=== PATIENT | female | born 1950 | race Caucasian/White ===

== ENCOUNTER 2017-06-03 09:08 | Outpatient (CLI) | payer MEDICARE | END 2017-06-03 09:09 | disposition home or self-care (01) | LOC: BICMAMMO 09:08 | PROVIDERS: ATTEND Internal Medicine | DX: Z12.31 Encounter for screening mammogram for malignant neoplasm of breast (principal); Z78.0 Asymptomatic menopausal state; M85.88 Other specified disorders of bone density and structure, other site; M81.0 Age-related osteoporosis without current pathological fracture | CPT/HCPCS: 77063; 77067; 77080 ==

== ENCOUNTER 2018-06-07 12:42 | Outpatient (CLI) | payer MEDICARE ==
--- NOTE | 2018-06-07 13:59 | MMO ---
Bilateral MAMMO Bilat Screen [facility]. CLINICAL HISTORY: Patient is 67 years old and is seen for screening. The patient has no family history of breast cancer. The patient has no personal history of cancer. The patient has a history of left Excisional Biopsy - benign - 35 years ago. VIEWS: The views performed were: bilateral craniocaudal with tomosynthesis and bilateral mediolateral oblique with tomosynthesis. FILMS COMPARED: The present examination has been compared to a prior imaging study performed at [facility] on 06/03/2017. MAMMOGRAM FINDINGS: The breasts are heterogeneously dense, which could obscure a lesion on mammography. There are stable benign appearing calcifications seen in both breasts. There are no suspicious masses, suspicious calcifications, or new areas of architectural distortion. IMPRESSION: THERE IS NO MAMMOGRAPHIC EVIDENCE OF MALIGNANCY. A ROUTINE FOLLOW-UP MAMMOGRAM IN 1 YEAR IS RECOMMENDED. THE RESULTS OF THIS EXAM WERE SENT TO THE PATIENT. ACR BI-RADS Category 2 - Benign finding MAMMOGRAPHY NOTE: 1. A negative mammogram report should not delay a biopsy if a dominant of clinically suspicious mass is present. 2. Approximately 10% to 15% of breast cancers are not detected by mammography. 3. Adenosis and dense breasts may obscure an underlying neoplasm.
== END 2018-06-07 12:43 | disposition home or self-care (01) ==
LOC: BICMAMMO 12:42
PROVIDERS: ATTEND Internal Medicine
DX: Z12.31 Encounter for screening mammogram for malignant neoplasm of breast (principal)
CPT/HCPCS: 77063; 77067

== ENCOUNTER 2018-12-26 15:05 | Emergency (ER) | payer MEDICARE | END 2018-12-26 16:29 | disposition home or self-care (01) | LOC: ERS 15:05 | DX: E11.649 Type 2 diabetes mellitus with hypoglycemia without coma (principal); E03.9 Hypothyroidism, unspecified; I10 Essential (primary) hypertension; E78.00 Pure hypercholesterolemia, unspecified; I25.2 Old myocardial infarction; Z86.73 Personal history of transient ischemic attack (TIA), and cerebral infarction without residual deficits; Z79.4 Long term (current) use of insulin; Z79.01 Long term (current) use of anticoagulants; Z79.82 Long term (current) use of aspirin | CPT/HCPCS: 36416; 99285 ==

== ENCOUNTER 2019-03-03 09:59 | Outpatient (CLI) | payer MEDICARE ==
--- NOTE | 2019-03-03 10:16 | RAD ---
EXAM: XR Shoulder Rt 3 View STANDARD PROVIDED CLINICAL HISTORY: Pain FINDINGS: There is no evidence for fracture. The acromioclavicular distance appears upper limits normal to mild ly widened. The coracoclavicular distance appears normal. Alignment appears anatomic. Joint spaces appear preserved. Calcified granuloma right upper lung zone. IMPRESSION: Borderline widening of the acromioclavicular distance. Correlate with concerns for low-grade AC joint injury.
== END 2019-03-03 10:00 | disposition home or self-care (01) ==
LOC: BICRAD 09:59
PROVIDERS: ATTEND Internal Medicine
DX: M75.01 Adhesive capsulitis of right shoulder (principal)

== ENCOUNTER 2019-04-30 10:24 | Observation (INO) | payer MEDICARE ==
--- NOTE | 2019-04-30 10:45 | CT ---
CT Brain WO Con History: Stroke alert. Altered mental status. Comparison: None. Findings: No acute hemorrhage or infarct. No midline shift or mass effect. Ventricular size and extra -axial CSF spaces are normal. Old right small lacunar infarct. The calvarium is intact. Paranasal sinuses and mastoids are clear. Impression: No acute intracranial abnormality.
[2019-04-30 10:53] LABS: #Eosinphils 0.2 thou/uL (0.0-0.7); #Lymphocytes 1.3 thou/uL (1.20-3.40); #Monocytes 0.4 thou/uL (0.11-0.59); #Neutrophils 3.8 thou/uL (1.40-6.50); %Basophils 0.8 % (0.0-1.0); %Eosinophils 3.8 % (0.0-10.0); %Lymphocytes 22.8 % (21.0-51.0); %Monocytes 6.5 % (0.0-10.0); %Neutrophils 66.1 % (42.0-75.0); Hemoglobin 12.2 g/dL (12.0-16.0); Mean Corpuscular Hemoglobin 34.1 pg (27.0-31.0); Mean Platelet Volume 9.2 fL (7.4-10.4); Platelet Count 183 thou/uL (130-400); RBC Distribution Width 11.8 % (11.5-14.5); Red Blood Cell (RBC) Count 3.57 mill/uL (4.20-5.40); White Blood Cell (WBC) Count 5.7 thou/uL (4.8-10.8)
--- NOTE | 2019-04-30 10:59 | CT ---
CTA head: Multiple axial tomograms obtained to the head with IV enhancement in the arterial phase. Multiplanar reconstruction and 3-D postprocessing according to angiogram protocol. INDICATIONS:stroke protocol FINDINGS: Intracranial internal carotid arteries appear patent and symmetric. Middle cerebral arteries appear patent and symmetric. M2 and M3 branches appear symmetric. No evidenc e of focal stenosis or occlusion. Anterior cerebral arteries appear patent and symmetric with no evidence of stenosis or occlusion. Basilar artery appears patent. No significant stenosis. Posterior cerebral arteries appear patent and symmetric. No focal stenosis or occlusion identified. IMPRESSION: Unremarkable CTA brain CTA neck: Multiple axial tomograms obtained through the neck with IV enhancement in arterial phase. Multiplanar reconstruction and 3-D postprocessing according to angiogram protocol. INDICATION: Stroke protocol FINDINGS: No stenosis identified at the origin of the arch vessels. Right common carotid artery appears patent and symmetric. No focal stenosis. Right bulb and right internal carotid artery appear patent. No evidence of stenosis. Left common carotid artery appears patent. No evidence of stenosis. Left internal carotid artery appears patent. No evidence of stenosis identified. Vertebral arteries appear patent and symmetric. No evidence of stenosis. Visualized soft tissues of the neck appear unremarkable. No mass or adenopathy. IMPRESSION: Unremarkable CTA of neck
[2019-04-30 11:09] LABS: ALT (SGPT) 23 U/L (8-55); AST (SGOT) 27 U/L (5-34); Albumin 4.3 g/dL (3.4-4.8); Alkaline Phosphatase 79 U/L (40-110); Anion Gap 13 mmol/L (10-20); BUN (Urea Nitrogen) 31 mg/dL (9.8-20.1); Bilirubin, Total 0.4 mg/dL (0.2-1.2); Calc. Creatinine Clearance 0 mL/min (70-130); Calcium 9.5 mg/dL (7.8-10.44); Carbon Dioxide 29 mmol/L (23-31); Chloride 103 mmol/L (98-107); Estimated GFR-MDRD 40; Globulin 2.7 g/dL (2.4-3.5); Glucose 125 mg/dL (80-115); Potassium 4.6 mmol/L (3.5-5.1); Sodium 140 mmol/L (136-145)
[2019-04-30] MEDS ORDERED: Dextrose 5% in Water 1,000 ML IV PRN (15:36)
[2019-04-30] MEDS ORDERED: Guaifenesin DM 100-10/5 ML UDCUP PO PRN (15:36)
[2019-04-30] MEDS ORDERED: Dextrose 50% Abboject 50 ML SYRINGE SLOW IVP PRN (15:36)
[2019-04-30] MEDS ORDERED: Senokot S 8.6-50 MG TAB PO PRN (15:36)
[2019-04-30] MEDS ORDERED: HumaLOG 300 UNITS/3 ML VIAL SC PRN (15:36)
[2019-04-30] MEDS ORDERED: Ondansetron PF 4 MG/2 ML Vial IVP PRN (15:36)
[2019-04-30] MEDS ORDERED: Acetaminophen 325 MG TAB PO PRN (15:36)
[2019-04-30] MEDS ORDERED: cloNIDine 0.1 MG TAB PO PRN (15:39)
--- NOTE | 2019-04-30 15:59 | RAD ---
EXAM: Portable chest PROVIDED CLINICAL HISTORY: Altered mental status COMPARISON: None FINDINGS: Cardiac and mediastinal silhouette is within normal limits. No focal consolidation, pleural fluid or pneumothorax evident. Median sternotomy changes are demonstrated. Wires overlie the left heart, which may reflect abandoned epicardial leads. Calcified granuloma right upper lung zone. IMPRESSION: No evidence for an acute cardiopulmonary process.
[2019-04-30 16:17] LABS: Hemoglobin A1c 7.1 % (4.0-6.0)
--- NOTE | 2019-04-30 18:53 | HP ---
REASON FOR ADMISSION: Possible TIA, hypoglycemia, acute kidney injury with moderate dehydration. HISTORY OF PRESENTING ILLNESS: Per patient, she was getting ready to go to [employer]. She had breakfast in the morning. She was not feeling right and was having a little headache. Despite this, the patient managed to drive to [employer] through, she started to feel confused. Her right eye started to hurt. She finally managed to turn her car around and come back home. On arrival, the patient had difficulty opening the door. Her drfzhskn-bb-qeg and son were at home and they saw her to be confused. They checked her sugar, it was 47. The patient says it was 223 in the morning when she checked. This was 2-1/2 hours prior to the sugar dipping down to 47. They gave her 16 ounce of orange juice and the patient felt a little better. Family brought her to the emergency room for the same. She had some slurring of speech. Her blood pressure was elevated at 200/100 as well. PAST MEDICAL AND SURGICAL HISTORY: 1. History of prior CVA which was a small one which made her get a headache. 2. Diabetes type 1 from 10 years of age. 3. Hypothyroidism. 4. Dyslipidemia. 5. History of CABG done for 5 vessels last year. 6. Hysterectomy. 7. Dyslipidemia. 8. Hypothyroidism. CURRENT MEDICATIONS: 1. The patient is on Humalog sliding scale, she took 6 units this morning. 2. Lantus 10 units subcu at bedtime. 3. Plavix 75 mg p.o. daily. 4. Atorvastatin 10 mg p.o. at bedtime. 5. Enalapril 10 mg daily. 6. Levothyroxine 100 mcg p.o. daily. 7. Metoprolol 50 mg twice daily. 8. Pristiq daily. ALLERGIES: NO KNOWN DRUG ALLERGIES. PERSONAL HISTORY: Does not abuse alcohol or drugs. No history of smoking. She lives with her son and pqjfwzkr-lu-yrq. She lost her 6 months back. She ambulates by herself at baseline. FAMILY HISTORY: Mother at the age of 47 from brain aneurysm. Had a brother who at the age of 39 from brain aneurysm as well. Father of natural causes from an old age. CODE STATUS: Full. Power of estate attorney is her son. REVIEW OF SYSTEMS: CONSTITUTIONAL: Negative for weight loss or gain, ability to conduct usual activities. SKIN: Negative for rash, itching. EYES: Negative for double vision, pain. ENT/MOUTH: Negative for nose bleeding, neck stiffness, pain, tenderness. CARDIOVASCULAR: Negative for palpitations, dyspnea on exertion, orthopnea. RESPIRATORY: Negative for shortness of breath, wheezing, cough, hemoptysis, fever or night sweats. GASTROINTESTINAL: Negative for poor appetite, abdominal pain, heartburn, nausea , vomiting, constipation, or diarrhea. GENITOURINARY: Negative for urgency, frequency, dysuria, nocturia. MUSCULOSKELETAL: Negative for pain, swelling. NEUROLOGIC/PSYCHIATRIC: Negative for anxiety, depression. ALLERGY/IMMUNOLOGIC: Negative for skin rash, bleeding tendency. PHYSICAL EXAMINATION: GENERAL: The patient is a 68-year-old female, who is currently not in any acute distress. She is fully oriented at present. VITAL SIGNS: Blood pressure 184/84, pulse 66 per minute, respiratory rate 16 per minute, temperature 98.2 degrees Fahrenheit, saturating 98% on room air. NECK: Supple. No elevated JVD. HEENT: Eyes; extraocular muscles intact. Pupils reacting to light. Oral cavity, mucous membranes are dry. No exudates or congestion. CARDIOVASCULAR SYSTEM: S1-S2 heard. Regular rhythm. RESPIRATORY SYSTEM: Air entry 1+ bilateral. No rales or rhonchi. ABDOMEN: Soft. Bowel sounds heard. No tenderness, rigidity, or guarding. EXTREMITIES: No peripheral edema or calf tenderness. VASCULAR SYSTEM: Peripheral pulses 2+ bilateral. No ischemic ulcerations or gangrene. CENTRAL NERVOUS SYSTEM: No gross focal motor deficits noted. The patient is alert, awake, and oriented well. PSYCHIATRIC SYSTEM: The patient's mood is euthymic. No hallucinations or delusions. IMAGING STUDIES: CT brain without contrast done showed no acute intracranial abnormality. CT angio of the head and neck shows no abnormality. Chest x-ray done shows no acute cardiopulmonary process. LABORATORY DATA: BNP was 182. Liver enzymes within normal limits. BUN 31, creatinine 1.3, serum glucose 125. HbA1c 7.1. Albumin 4.3. Troponin is negative. Electrolytes are stable. White count of 5, H and H 12 and 35, platelet count is 183, MCV is 100. CLINICAL IMPRESSION AND PLAN: The patient will be admitted under observation on stroke unit for slurred speech, confusion, and headache, likely all contributed from hypoglycemia with fingerstick glucose of 47 this morning. Her HbA1c is around 7.1. The patient manages her diabetes strictly. She had taken 6 units of Humalog in the morning along with 10 units of Lantus last evening. Her initial fingerstick glucose was 223 which dropped down to 47 two and half hours later despite her eating a breakfast. She has no signs or symptoms of any infection at present. The patient denies any urinary symptoms. Her urinalysis is pending at present. We will continue her on aspirin, Lipitor at 40 mg, Plavix, Humalog mild dose sliding scale, Lantus 10 units at bedtime, Synthroid home dose, Lopressor home dose 50 mg twice daily. Gently hydrate her with normal saline at 100 mL/hour. We will obtain MRI without contrast for the brain and echo with 2D Doppler for LV function to complete TIA protocol. We will also obtain a folic acid and B12 levels in view of her MCV being elevated. If her UA shows signs and symptoms of infection, she will be placed on antibiotics. We will hold off on any for now. I have given full updates to the patient and her udkmhdqr-[id number] who is also a nurse practitioner, Ms. Neeta Gallo, at bedside. Job ID: [id number] MTDD
[2019-04-30] MEDS ORDERED: HumaLOG 300 UNITS/3 ML VIAL ONE (19:09)
[2019-04-30] MEDS: HumaLOG 300 UNITS/3 ML VIAL SC PRN (19:15)
[2019-04-30] MEDS ORDERED: Metoprolol Tartrate 25 MG TAB ONE (20:35)
[2019-04-30] MEDS ORDERED: Famotidine 20 MG TAB ONE (20:35)
[2019-04-30] MEDS ORDERED: Atorvastatin Calcium 40 MG TAB PO SCH (21:00)
[2019-04-30] MEDS ORDERED: Insulin Glargine 10 UNITS in Pre-Filled Syringe SC SCH (21:00)
[2019-04-30] MEDS: Sodium Chloride 0.9% 1,000 ML IV SCH (21:01)
[2019-04-30] MEDS: Metoprolol Tartrate 50 MG TAB PO SCH (21:07)
[2019-04-30] MEDS: Famotidine 20 MG TAB PO SCH (21:07)
[2019-05-01] MEDS: Sodium Chloride 0.9% 1,000 ML IV SCH (02:07)
[2019-05-01 05:54] LABS: #Eosinphils 0.2 thou/uL (0.0-0.7); #Lymphocytes 1.2 thou/uL (1.20-3.40); #Monocytes 0.3 thou/uL (0.11-0.59); #Neutrophils 2.8 thou/uL (1.40-6.50); %Basophils 0.7 % (0.0-1.0); %Eosinophils 3.8 % (0.0-10.0); %Lymphocytes 26.8 % (21.0-51.0); %Neutrophils 61.7 % (42.0-75.0); Hemoglobin 11.5 g/dL (12.0-16.0); Mean Corpuscular HGB CONC 33.9 g/dL (32.0-36.0); Mean Corpuscular Hemoglobin 33.9 pg (27.0-31.0); Mean Platelet Volume 9.5 fL (7.4-10.4); Platelet Count 155 thou/uL (130-400); RBC Distribution Width 11.7 % (11.5-14.5); Red Blood Cell (RBC) Count 3.39 mill/uL (4.20-5.40); White Blood Cell (WBC) Count 4.5 thou/uL (4.8-10.8)
[2019-05-01] MEDS ORDERED: Levothyroxine Sodium 100 MCG TAB PO SCH (06:00)
[2019-05-01 06:09] LABS: Iron 85 ug/dL (50-170); Iron Binding Capacity, Total 255 mcg/dL (265-497)
[2019-05-01 06:18] LABS: Anion Gap 10 mmol/L (10-20); BUN (Urea Nitrogen) 25 mg/dL (9.8-20.1); Calc. Creatinine Clearance 0 mL/min (70-130); Calcium 9.2 mg/dL (7.8-10.44); Carbon Dioxide 30 mmol/L (23-31); Cardiac Risk 2.5 (Less than 4.5); Chloride 101 mmol/L (98-107); Cholesterol 152 mg/dl (< 200 Desired); Estimated GFR-MDRD 38; Glucose 353 mg/dL (80-115); HDL Cholesterol 61 mg/dL (>60 Neg Risk); Iron 85 ug/dL (50-170); Iron Binding Capacity, Total 256 mcg/dL (265-497); LDL Cholesterol, Calculated 71 mg/dL; Potassium 4.4 mmol/L (3.5-5.1); Sodium 137 mmol/L (136-145); Triglycerides 100 mg/dL (Less than 150)
[2019-05-01 06:48] LABS: Ferritin 34.28 ng/mL (10-291)
[2019-05-01] MEDS: HumaLOG 300 UNITS/3 ML VIAL SC PRN ×2 (07:30→12:25)
[2019-05-01] MEDS ORDERED: Metoprolol Tartrate 50 MG TAB ONE (08:32)
[2019-05-01] MEDS ORDERED: Clopidogrel Bisulfate 75 MG TAB ONE (08:32)
[2019-05-01] MEDS ORDERED: Famotidine 20 MG TAB ONE (08:32)
[2019-05-01] MEDS ORDERED: Enoxaparin Sodium 40 MG/0.4 ML SYRINGE ONE (08:32)
[2019-05-01] MEDS ORDERED: Aspirin Chewable 81 MG TAB ONE (08:32)
[2019-05-01] MEDS: Famotidine 20 MG TAB PO SCH (08:41)
[2019-05-01] MEDS: Metoprolol Tartrate 50 MG TAB PO SCH (08:42)
[2019-05-01] MEDS ORDERED: Enoxaparin Sodium 40 MG/0.4 ML SYRINGE SC SCH (09:00)
[2019-05-01] MEDS ORDERED: Aspirin 81 mg Enteric Coated Tablet PO SCH (09:00)
[2019-05-01] MEDS ORDERED: Clopidogrel Bisulfate 75 MG TAB PO SCH (09:00)
--- NOTE | 2019-05-01 09:57 | MRI ---
MRI of thebrain: 05/01/2019 COMPARISON:None available HISTORY:Headaches and confusion, transient ischemic attack TECHNIQUE: Multiplanar multisequence MR imaging of thebrain without contrast Findings:The diffusion weighted imaging demonstrates no evidence for acute infarction. The axial gradient echo imaging demonstrates no evidence for intracranial hemorrhage. There is a mild degree of diffuse cerebral volume loss. Moderate cerebellar volume loss noted as well . There are a few opacified mastoid air cells inferiorly on the left. Arterial flow voids at the axial level of the skull base appear grossly unremarkable on the T2-weight ed imaging. Regional bone marrow signal intensity appears within normal limits. A few small foci of increased T2 and FLAIR signal noted within the white matter suggesting minimal sm all vessel disease. IMPRESSION:No MR evidence of acute infarction or intracranial hemorrhage.
[2019-05-01 11:01] VITALS: TEMP 97.9; BMI 25.7
[2019-05-01 14:27] LABS: Bacteria/HPF 2+ HPF (None Seen); Bilirubin Negative (Negative); Blood, Urine Negative (Negative); Clarity Turbid (Clear); Glucose, Urine (Dipstick) 200 mg/dL (Negative); Leukocyte 500 Leu/uL (Negative); Nitrite Negative (Negative); Protein, Urine (Dipstick) 10 mg/dL (Neg-Trace); RBC/HPF 0-3 HPF (0-3); Squamous Epithelial 0-3 HPF (0-3); Urobilinogen Normal mg/dL (Less than 2); WBC/HPF Greater than 50 HPF (0-3)
[2019-05-01 14:39] LABS: Urine Culture Reflex Yes Yes
[2019-05-01 14:46] VITALS: BP 133/70
--- NOTE | 2019-05-01 17:25 | DIS ---
DATE OF ADMISSION: 04/30/2019 DATE OF DISCHARGE: 05/01/2019 DISCHARGE DISPOSITION: Home. PRIMARY DISCHARGE DIAGNOSES: Hypoglycemia, acute kidney injury, moderate dehydration, all of which got resolved. Possible transient ischemic attack, resolved. SECONDARY DISCHARGE DIAGNOSES: 1. History of diabetes mellitus type 1. 2. Prior history of coronary artery bypass graft. 3. Dyslipidemia. 4. Hypothyroidism. PROCEDURES DONE DURING HOSPITALIZATION: CT brain without contrast done showed no acute intracranial abnormality. CT angiogram of the head and neck was unremarkable. MRI brain done showed no evidence of acute infarct or bleed. Respiratory virus panel PCR was negative. H and H 11 and 33, platelet count 155, MCV is 100. Total cholesterol 152, triglycerides 100, LDL 71, HDL 61. Vitamin B12 is 517, ferritin 34.28, serum iron 85, TIBC 256, percent saturation 33. Discharge BUN and creatinine are 25 and 1.3. Folate levels were 16.2. Troponin x1 is negative. Initial BUN and creatinine of 31 and 1.3. UA showed positive for UTI. DISCHARGE MEDICATION: 1. Ciprofloxacin 500 mg p.o. twice daily for 5 days. 2. Lipitor 80 mg p.o. daily. 3. Plavix 75 mg p.o. daily. 4. Pristiq 25 mg daily which is an extended release. 5. Lantus 10 units subcu at bedtime. 6. Levothyroxine 100 mcg p.o. daily. 7. Toprol-XL 50 mg daily. 8. Lisinopril 5 mg daily. ALLERGIES: NO KNOWN DRUG ALLERGIES. DISCHARGE PLAN: The patient to follow up with Dr. Carmelita Roth in 1 week. The patient also needs to keep a log of fingerstick glucose twice daily along with blood pressure and pulse twice daily to follow up with her primary care physician for any changes in her medication. BRIEF COURSE DURING HOSPITALIZATION: The patient initially was brought to emergency room after she nearly passed out with a fingerstick glucose of 47 and was confused. The patient is a known type 1 diabetic. In view of this history, she was placed under observation on telemetry. In view of initial slurred speech, she has had a neurologic workup done which was negative for any acute CVA. She was closely monitored on telemetry. She has not had any signs or symptoms of sepsis except for UTI. Likely the inciting event for hypoglycemia might be urinary tract infection. She is on a low-dose basal insulin Lantus 10 units at bedtime and Humalog for coverage, which she needs to continue as before. Her HbA1c was around 7. She needs to continue all other medications as before. Prior to discharge, she is fully oriented and tolerating oral solid diet. I have given complete updates to her exxmcobs-wy-apw and nurse practitioner, Ms. Neeta Gallo as well as patient. She is hemodynamically stable and will be shortly discharged home. Please note I have seen and examined the patient on the day of discharge. Job ID: [id number]
[2019-05-02] MEDS ORDERED: Famotidine 20 MG TAB PO SCH (09:00)
[2019-05-02] MEDS ORDERED: Enoxaparin Sodium 30 MG/0.3 ML SYRINGE SC SCH (09:00)
== END 2019-05-01 16:19 | disposition home or self-care (01) ==
LOC: ERS 10:24 → 2SW 15:00 → ERHOLD 15:17 → 2SW 05-01 10:41
PROVIDERS: ADMIT Internal Medicine; ATTEND Internal Medicine
DX: E10.649 Type 1 diabetes mellitus with hypoglycemia without coma (principal); E86.0 Dehydration; N17.9 Acute kidney failure, unspecified; E03.9 Hypothyroidism, unspecified; E78.5 Hyperlipidemia, unspecified; I10 Essential (primary) hypertension; Z79.4 Long term (current) use of insulin; Z79.899 Other long term (current) drug therapy; Z86.73 Personal history of transient ischemic attack (TIA), and cerebral infarction without residual deficits; Z95.1 Presence of aortocoronary bypass graft
CPT/HCPCS: 70450; 70496; 70498; 70551; 71045; 80048; 80053; 80061; 81001; 82607; 82728; 82746; 82962 ×2; 83036; 83540; 83550; 83880; 84484; 85025 ×2; 87077; 87086; 87186; 87633; 93005; 93306; 97139 ×3; 99285; G0378 ×3; 36415; 36416; J1650; J1815

== ENCOUNTER 2019-07-28 14:04 | Outpatient (CLI) | payer MEDICARE ==
--- NOTE | 2019-07-28 15:48 | MMO ---
Bilateral MAMMO Bilat Screen [facility]. CLINICAL HISTORY: Patient is 69 years old and is seen for screening. The patient has no family history of breast cancer. The patient has no personal history of cancer. The patient has a history of left Excisional Biopsy - benign - 35 years ago. VIEWS: The views performed were: bilateral craniocaudal with tomosynthesis and bilateral mediolateral oblique with tomosynthesis. FILMS COMPARED: The present examination has been compared to prior imaging studies performed at [facility] on 06/03/2017 and 06/07/2018. This study has been interpreted with the assistance of computer-aided detection. MAMMOGRAM FINDINGS: The breasts are heterogeneously dense, which could obscure a lesion on mammography. Benign calcifications are noted bilaterally. There are no suspicious masses, suspicious calcifications, or new areas of architectural distortion. IMPRESSION: THERE IS NO MAMMOGRAPHIC EVIDENCE OF MALIGNANCY. A ROUTINE FOLLOW-UP MAMMOGRAM IN 1 YEAR IS RECOMMENDED. THE RESULTS OF THIS EXAM WERE SENT TO THE PATIENT. ACR BI-RADS Category 2 - Benign finding MAMMOGRAPHY NOTE: 1. A negative mammogram report should not delay a biopsy if a dominant of clinically suspicious mass is present. 2. Approximately 10% to 15% of breast cancers are not detected by mammography. 3. Adenosis and dense breasts may obscure an underlying neoplasm. Reported by: BOBBY OCHOA MD Electonically Signed: [id number]
== END 2019-07-28 14:05 | disposition home or self-care (01) ==
LOC: BICMAMMO 14:04
PROVIDERS: ATTEND Internal Medicine
DX: Z12.31 Encounter for screening mammogram for malignant neoplasm of breast (principal); Z91.89 Other specified personal risk factors, not elsewhere classified
CPT/HCPCS: 77063; 77067

== ENCOUNTER 2020-02-08 10:12 | Outpatient (CLI) | payer MEDICARE ==
--- NOTE | 2020-02-08 13:01 | BD ---
DEXA BONE DENSITY STUDY: Date: 02/08/2020 HISTORY: 69-year-old postmenopausal female for screening. COMPARISON: 06/03/2017. FINDINGS: Lumbar Spine: BMD (g/cm2) L1 0.935 T-Score: -0.5 L2 1.012 T-Score: -0.1 L3 1.015 T-Score: -0.6 L4 0.999 T-Score: -0.6 L1-L4 0.993 T-Score: -0.5 Right Femoral Neck: 0.531 T-Score: -2.9 Total Femur: 0.743 T-Score: -1.6 IMPRESSION: Osteoporosis. When compared to the prior examination, the bone density does not appear to have changed significantl y. POS: EAA
== END 2020-02-08 10:13 | disposition home or self-care (01) ==
LOC: BICMAMMO 10:12
PROVIDERS: ATTEND Internal Medicine
DX: Z13.820 Encounter for screening for osteoporosis (principal); M81.0 Age-related osteoporosis without current pathological fracture; Z78.0 Asymptomatic menopausal state
CPT/HCPCS: 77080

== ENCOUNTER 2020-08-06 10:06 | Outpatient (CLI) | payer MEDICARE | END 2020-08-06 10:07 | disposition home or self-care (01) | LOC: BICMAMMO 10:06 | PROVIDERS: ATTEND Internal Medicine | DX: Z12.31 Encounter for screening mammogram for malignant neoplasm of breast (principal); Z91.89 Other specified personal risk factors, not elsewhere classified | CPT/HCPCS: 77063; 77067 ==

== ENCOUNTER 2021-08-07 10:24 | Outpatient (CLI) | payer MEDICARE | END 2021-08-07 10:25 | disposition home or self-care (01) | LOC: BICMAMMO 10:24 | PROVIDERS: ATTEND Internal Medicine | DX: Z12.31 Encounter for screening mammogram for malignant neoplasm of breast (principal); Z91.89 Other specified personal risk factors, not elsewhere classified | CPT/HCPCS: 77063; 77067 ==

== ENCOUNTER 2021-09-17 14:27 | Outpatient (CLI) | payer MEDICARE | END 2021-09-17 14:28 | disposition home or self-care (01) | LOC: BICMRI 14:27 | PROVIDERS: ATTEND Internal Medicine | DX: G31.84 Mild cognitive impairment of uncertain or unknown etiology (principal); G93.89 Other specified disorders of brain; R90.89 Other abnormal findings on diagnostic imaging of central nervous system; H74.8X2 Other specified disorders of left middle ear and mastoid | CPT/HCPCS: 70551 ==

== ENCOUNTER 2022-11-13 10:09 | Outpatient (CLI) | payer MEDICARE | END 2022-11-13 10:10 | disposition home or self-care (01) | LOC: BICMAMMO 10:09 | PROVIDERS: ATTEND Internal Medicine | DX: Z12.31 Encounter for screening mammogram for malignant neoplasm of breast (principal) | CPT/HCPCS: 77063; 77067 ==

== ENCOUNTER 2022-12-07 09:30 | Outpatient (CLI) | payer MEDICARE | END 2022-12-07 09:31 | disposition home or self-care (01) | LOC: BICMAMMO 09:30 | PROVIDERS: ATTEND Internal Medicine | DX: Z78.0 Asymptomatic menopausal state (principal); M85.851 Other specified disorders of bone density and structure, right thigh; Z13.820 Encounter for screening for osteoporosis | CPT/HCPCS: 77080 ==

== ENCOUNTER 2024-01-20 09:25 | Outpatient (CLI) | payer MEDICARE | END 2024-01-20 09:26 | disposition home or self-care (01) | LOC: BICULT 09:25 | PROVIDERS: ATTEND Internal Medicine | DX: M25.562 Pain in left knee (principal); N18.32 Chronic kidney disease, stage 3b; N28.89 Other specified disorders of kidney and ureter | CPT/HCPCS: 76770 ==